=== PATIENT | male | born 1990 | race African-American/Black ===

== ENCOUNTER 2017-08-27 18:59 | Emergency (ER) | payer SELFPAY ==
[~2017-08-27 18:59] MED LIST: ISOVUE-370 76%-LOCM 1 ML ONE
[2017-08-27 19:51] LABS: #Eosinphils 0.2 thou/uL (0.0-0.7); #Lymphocytes 1.5 thou/uL (1.20-3.40); #Monocytes 0.5 thou/uL (0.11-0.59); #Neutrophils 4.2 thou/uL (1.40-6.50); %Basophils 0.7 % (0.0-1.0); %Lymphocytes 23.6 % (21.0-51.0); %Monocytes 7.4 % (0.0-10.0); %Neutrophils 65.3 % (42.0-75.0); Hemoglobin 16.2 g/dL (14.0-18.0); Mean Corpuscular Hemoglobin 34.3 pg (27.0-31.0); Mean Platelet Volume 9.7 fL (7.4-10.4); Platelet Count 156 thou/uL (130-400); RBC Distribution Width 11.7 % (11.5-14.5); Red Blood Cell (RBC) Count 4.72 mill/uL (4.70-6.10); White Blood Cell (WBC) Count 6.5 thou/uL (4.8-10.8)
[2017-08-27 20:11] LABS: ALT (SGPT) 13 U/L (8-55); AST (SGOT) 17 U/L (5-34); Alkaline Phosphatase 57 U/L (40-150); Anion Gap 12 mmol/L (10-20); BUN (Urea Nitrogen) 10 mg/dL (8.9-20.6); Bilirubin, Total 0.8 mg/dL (0.2-1.2); CK (CPK) 289 U/L (30-200); Calc. Creatinine Clearance 0 mL/min (70-130); Calcium 9.6 mg/dL (7.8-10.44); Carbon Dioxide 24 mmol/L (22-29); Chloride 107 mmol/L (98-107); Estimated GFR-MDRD 82; Globulin 3.1 g/dL (2.4-3.5); Glucose 98 mg/dL (70-105); Potassium 3.5 mmol/L (3.5-5.1); Protein, Total 7.1 g/dL (6.0-8.3); Sodium 139 mmol/L (136-145)
[2017-08-27 20:14] LABS: Troponin I Less than 0.010 ng/mL (< 0.028)
[2017-08-27] MEDS ORDERED: Aspirin 325 MG TAB ONE (20:25)
--- NOTE | 2017-08-27 20:57 | RAD ---
RADIOGRAPH CHEST 1 VIEW: 08/27/17 HISTORY: 27-year-old male with chest pain. FINDINGS: There are no air space densities, pulmonary edema, pneumothorax, or cardiomegaly. The lateral costop hrenic angles are sharp. IMPRESSION: No acute cardiopulmonary findings. [email or web address] [] POS: MONICA
--- NOTE | 2017-08-27 21:08 | RAD ---
RADIOGRAPH NECK SOFT TISSUES 2 VIEWS: 08/27/17 HISTORY: 27-year-old male with neck pain. FINDINGS: There is no prevertebral, retropharyngeal, or supraglottic soft tissue thickening. There may or may n ot be submandibular soft tissue swelling. No subcutaneous emphysema. IMPRESSION: 1. Questionable soft tissue swelling or thickening of the region of the mylohyoid muscle. Accord ing to Dr. Hylton, the patient's pain is in the posterior neck, not the submandibular region, and th erefore this radiographic finding is probably not clinically relevant. 2. Otherwise negative. POS: TRUE
--- NOTE | 2017-08-27 22:41 | CT ---
CT THORAX WITH CONTRAST: 08/27/17 HISTORY: 27-year-old male with acute chest pain. FINDINGS: The lungs are clear. No pleural effusion or pneumothorax. Trachea and major bronchi are patent and cl ear. No destructive osseous lesion or fracture. Bilateral gynecomastia. No mediastinal or hilar lymph adenopathy. No cardiomegaly or pericardial effusion. IMPRESSION: 1. Gynecomastia. 2. Otherwise normal. JOÃO Jeff POS: MONICA
--- NOTE | 2017-08-27 22:58 | CT ---
CT NECK WITH CONTRAST: 08/27/17 HISTORY: 27-year-old male with neck pain. FINDINGS: The submandibular, sublingual, parotid, carotid, parapharyngeal, perivertebral, retropharyngeal, mast icator, and posterior cervical, spaces, are essentially normal. The mylohyoid muscle is slightly thic k, but there is no associated fat stranding, and therefore this is unlikely to be clinically signific ant, especially since the neck pain is located posteriorly. No significant lymphadenopathy. No major pathology of thyroid gland, larynx or hypopharynx. There is hyperplasia of the adenoids and bilatera l palatine tonsils symmetrically, but not the lingual tonsil. There is mild disc space narrowing at C 6-7 with bilateral uncinate process osteophytes and mild broad based disc/osteophyte complex encroach ing upon the anterior aspect of the spinal canal. There is polypoid mucosal thickening at the floors of the bilateral maxillary sinuses, mild on the left and moderate on the right, consistent with mucou s retention cyst. The bilateral tympanomastoid cavities, and the rest of the visualized paranasal sin uses, are grossly clear. Upper aspects of the frontal sinuses were not included in the field of view. No evidence of neoplastic mass or abscess. No destructive osseous lesion. IMPRESSION: 1. Enlargement of Waldeyer's ring: adenoids and bilateral palatine tonsils. 2. Mucous retention cysts in the maxillary sinuses, especially on the right. 3. Moderate degenerative disc changes at C6-7. 4. No other significant pathology identified. POS: MONICA
[2017-08-27] MEDS ORDERED: Ketorolac Tromethamine 30 MG/ML VIAL ONE (23:50)
--- NOTE | 2017-08-30 12:38 | EKG ---
Test Reason : Blood Pressure : / mmHG Vent. Rate : 084 BPM Atrial Rate : 084 BPM P-R Int : 172 ms QRS Dur : 090 ms QT Int : 342 ms P-R-T Axes : 065 035 037 degrees QTc Int : 404 ms Normal sinus rhythm Possible Left atrial enlargement Possible Acute pericarditis Abnormal ECG Confirmed by JOSE JUAN JASON M.D. ([id number]), news videotape editor LEXIE SAEZ ([id number]) on 08/30/2017 12:38:33 PM Referred By: Confirmed By:JOSE JUAN JASON M.D.
== END 2017-08-27 23:58 | disposition home or self-care (01) ==
LOC: ERS 18:59
DX: R07.89 Other chest pain (principal); M54.2 Cervicalgia; F17.210 Nicotine dependence, cigarettes, uncomplicated
CPT/HCPCS: 36415; 70360; 70491; 71045; 71260; 80053; 82550; 82553; 84484; 85025; 93005; 96361; 96374; 99406; J1885